=== PATIENT | male | born 1940 | race Asian ===

== ENCOUNTER 2016-05-17 18:04 | Emergency (ER) | payer MEDICARE, OTHER ==
[~2016-05-17] VITALS: Ht 170.2 cm; Wt 63.5 kg
[2016-05-17] MEDS ORDERED: CARVEDILOL3.125 MG ORAL (18:06)
[2016-05-17] MEDS ORDERED: AMLODIPINE BES2.5 MG ORAL (18:06)
[2016-05-17] MEDS ORDERED: ELIQUIS2.5 MG PO (18:06)
[2016-05-17] MEDS ORDERED: DEXILANT30 MG ORAL (18:06)
[2016-05-17 18:12] VITALS: BP 136/71
--- NOTE | 2016-05-17 18:23 | Emergency Room Report ---
History of Present Illness General Chief Complaint: Altered Level of Consciousness Source: Patient, EMS Present Illness HPI Patient is a 76-year-old male who presented after having increased altered level consciousness. The patient had prior history of end-stage renal disease. Patient had been on dialysis earlier in the day. The patient was noted to have missed one dialysis this week. Patient had prior history of hypertension he is not known to be taking any anticoagulation. Patient was brought in by EMS.Blood sugar was noted to be 113 Allergies: Coded Allergies: No Known Allergies (Unverified , 05/17/16) Patient History Past Medical History: see triage record Reviewed Nursing Documentation: PMH: Agreed, PSxH: Agreed Nursing Documentation-PMH Hx Hypertension: Yes Hx Diabetes: Yes Hx Dialysis: Yes Review of Systems All Other Systems: negative except mentioned in HPI Physical Exam Vital Signs Date Time Temp Pulse Resp B/P Pulse Ox O2 Delivery O2 Flow Rate FiO2 05/17/16 18:00 97.9 108 18 136/71 100 Nasal Cannula 4.0 General Appearance: alert, GCS 15, non-toxic, mild distress, thin Eyes: bilateral eye conjunctivae pale Neck: full range of motion Respiratory: lungs clear, normal breath sounds, no rhonchi, no respiratory distress Cardiovascular #1: normal peripheral pulses, regular rate, rhythm, irregularly irregular Gastrointestinal: non tender, soft, other - incision right lower abdomen Genitourinary: normal inspection Musculoskeletal: normal inspection, digits/nails normal Neurologic: alert, oriented x3, responsive, shipping processor III-XII nml as tested Psychiatric: normal inspection Skin: other Medical Decision Making Diagnostic Impression: Primary Impression: Altered level of consciousness Additional Impression: ESRD (end stage renal disease) ER Course Patient presented for altered mental status.Differential diagnosis included but was not limited to ischemic stroke, subarachnoid hemorrhage, hypoglycemia, spinal cord injury, neurodegenerative disorder, urinary tract infection, hypoxemia.Because of complexity of patient's case laboratory testing and imaging studies were ordered. EKG interpreted by me showed atrial fibrillation with a rate of 100 with occasional PVCs. Patient was noted to have some lateral ST depression changes. CT head read by radiology showed atrophic changes without evident stroke or intracranial hemorrhage. The patient was noted to have improvement in his mental status. Patient said he felt better want to go home. The patient's was in agreement with having the patient go home and follow up with his primary care physician. The patient and declined inpatient admission. They were advised to return at anytime. Labs Test 05/17/16 18:00 White Blood Count 5.0 K/UL (4.8-10.8) Red Blood Count 2.41 M/UL (4.70-6.10) Hemoglobin 8.9 G/DL (14.2-18.0) Hematocrit 26.1 % (42.0-52.0) Mean Corpuscular Volume 108 FL (80-99) Mean Corpuscular Hemoglobin 36.8 PG (27.0-31.0) Mean Corpuscular Hemoglobin Concent 34.0 G/DL (32.0-36.0) Red Cell Distribution Width 13.0 % (11.6-14.8) Platelet Count 96 K/UL (150-450) Mean Platelet Volume 8.0 FL (6.5-10.1) Neutrophils (%) (Auto) % (45.0-75.0) Lymphocytes (%) (Auto) % (20.0-45.0) Monocytes (%) (Auto) % (1.0-10.0) Eosinophils (%) (Auto) % (0.0-3.0) Basophils (%) (Auto) % (0.0-2.0) Prothrombin Time 10.9 SEC (9.30-11.50) Prothromb Time International Ratio 1.1 (0.9-1.1) Activated Partial Thromboplast Time 29 SEC (23-33) Sodium Level 132 mEQ/L (135-145) Potassium Level 3.5 mEQ/L (3.4-4.9) Chloride Level 86 mEQ/L (98-107) Carbon Dioxide Level 29 mEQ/L (20-30) Anion Gap 17 (5-15) Blood Urea Nitrogen 33 mg/dL (7-23) Creatinine 3.5 mg/dL (0.7-1.2) Estimat Glomerular Filtration Rate mL/min (>60) Glucose Level 146 mg/dL (74-106) Lactic Acid Level 1.50 mmol/L (0.66-2.22) Calcium Level 7.7 mg/dL (8.6-10.2) Phosphorus Level 1.8 mg/dL (2.5-4.8) Magnesium Level 2.0 mg/dL (1.7-2.5) Total Bilirubin 0.5 mg/dL (0.0-1.2) Aspartate Amino Transf (AST/SGOT) 30 U/L (5-40) Alanine Aminotransferase (ALT/SGPT) 9 U/L (3-41) Alkaline Phosphatase 99 U/L (40-129) Total Creatine Kinase 88 U/L (38-174) Creatine Kinase MB 2.1 ng/mL (< 6.7) Creatine Kinase MB Relative Index 2.3 Troponin I < 0.30 ng/mL (<=0.30) Total Protein 6.6 g/dL (6.6-8.7) Albumin 3.3 g/dL (3.5-5.2) Globulin 3.3 g/dL Albumin/Globulin Ratio 1.0 (1.0-2.7) Lipase 72 U/L (< 60) EKG Diagnostic Results Rate: normal Rhythm: NSR ST Segments: no acute changes Rhythm Strip Diag. Results EP Interpretation: yes Rhythm: NSR, no PVC's, no ectopy Chest X-Ray Diagnostic Results EP Interpretation: Yes Findings: no consolidation, no effusion, no pneumothorax, no acute cardiopulmonary disease Number of Views: 1 Last Vital Signs Date Time Temp Pulse Resp B/P Pulse Ox O2 Delivery O2 Flow Rate FiO2 05/17/16 18:00 97.9 108 18 136/71 100 Nasal Cannula 4.0 Status: unchanged Disposition: ADMITTED INPATIENT Condition: Neymar Queen May 17, 2016 18:23
[2016-05-17] MEDS ORDERED: STOOL SOFTENER250 MG PO (18:28)
[2016-05-17] MEDS ORDERED: DIOVAN40 MG ORAL (18:28)
[2016-05-17 18:37] LABS: MEAN CORPUSCULAR HEMOGLOBIN 36.8 PG (27.0-31.0); MEAN CORPUSCULAR VOLUME 108 FL (80-99); PLATELET COUNT 96 K/UL (150-450); RED BLOOD COUNT 2.41 M/UL (4.70-6.10)
[2016-05-17 18:42] LABS: INR 1.1 (0.9-1.1); PROTHROMBIN TIME 10.9 SEC (9.30-11.50)
[2016-05-17 19:01] LABS: TROPONIN I < 0.30 ng/mL (<=0.30)
[2016-05-17 19:03] LABS: ALANINE AMINOTRANSFERASE 9 U/L (3-41); ANION GAP 17 (5-15); ASPARTATE AMINO TRANSFERASE 30 U/L (5-40); CALCIUM 7.7 mg/dL (8.6-10.2); CARBON DIOXIDE 29 mEQ/L (20-30); CHLORIDE 86 mEQ/L (98-107); CREATININE 3.5 mg/dL (0.7-1.2); HEMOLYSIS 31; LIPASE 72 U/L (< 60); PHOSPHORUS 1.8 mg/dL (2.5-4.8); POTASSIUM 3.5 mEQ/L (3.4-4.9); SODIUM 132 mEQ/L (135-145); TOTAL PROTEIN 6.6 g/dL (6.6-8.7)
[2016-05-17 19:14] LABS: CKMB 2.1 ng/mL (< 6.7)
[2016-05-17 19:52] VITALS: BP 142/59
[2016-05-17 19:53] LABS: ANISOCYTOSIS 1+; BAND NEUTROPHILS % (MANUAL) 0 % (0-8); BASOPHILS % (MANUAL) 0 % (0-2); EOSINOPHILS % (MANUAL) 8 % (0-3); HYPOCHROMASIA 1+; LYMPHOCYTES % (MANUAL) 27 % (20-45); NEUTROPHILS % (MANUAL) 62 % (45-75); PLATELET ESTIMATE DECREASED; PLATELET MORPHOLOGY NORMAL; TOTAL CELLS COUNTED 100
[2016-05-17 22:03] VITALS: BP 138/81
--- NOTE | 2016-05-18 09:50 | Diagnostic Imaging Report ---
Indication: Altered mental status Technique: Continuous helical CT scanning of the head was performed utilizing automated exposure control without intravenous contrast material. Axial and coronal reconstructions were obtained. Comparison: None CT dose: Total DLP 1393 mGycm; CTDI vol 70.4 mGy Findings: There is no acute intracranial hemorrhage, mass effect or cortical edema. The ventricles, cisterns and sulci are prominent consistent with atrophy. Periventricular and subcortical hypoattenuation are seen, a nonspecific finding. Small hypodensities are suggested of the bilateral basal ganglia. The posterior fossa and fourth ventricle are unremarkable. Sellar and suprasellar regions are grossly unremarkable. Visualized mastoid air cells and paranasal sinuses are unremarkable. No focal lesions of the bony calvarium or soft tissues of the scalp are seen. Impression: No evidence of acute intracranial hemorrhage, mass effect or cortical edema. MRI may be obtained for more sensitive evaluation as clinically indicated. Atrophy and nonspecific periventricular and subcortical hypoattenuation suggestive of chronic ischemic microvascular changes. Small apparent hypodensities of the bilateral basal ganglia could represent old lacunar infarcts. Clinical correlation recommended. The CT scanner at [facility] is accredited by the [employer] and the scans are performed using protocols designed to limit radiation exposure to as low as reasonably achievable to attain images of sufficient resolution adequate for diagnostic evaluation.
--- NOTE | 2016-05-19 09:34 | Diagnostic Imaging Report ---
Indication: Shortness of breath Technique: XRAY CHEST 1 V Comparison: None Findings: Cardiac silhouette is prominent. There is central pulmonary vascular redistribution. Sternotomy wires are seen. Atherosclerotic changes are noted. There is no obvious pleural effusion. Degenerative changes of the spine are seen. Impression: Cardiomegaly with central pulmonary vascular congestion. Clinical correlation/followup recommended.
== END 2016-05-17 22:03 | disposition home or self-care (01) ==
LOC: EDBD 18:04 → EMR 18:21 → EDBEDREQ 20:53 → CANBEDREQ 21:29 → EMR 22:03
DX: R40.4 Transient alteration of awareness (principal); E11.22 Type 2 diabetes mellitus with diabetic chronic kidney disease; I12.0 Hypertensive chronic kidney disease with stage 5 chronic kidney disease or end stage renal disease; N18.6 End stage renal disease; Z99.2 Dependence on renal dialysis
CPT/HCPCS: 36415; 70450; 71010; 80053; 82550; 82553; 83605; 83690; 83735; 84100; 84484; 85007; 85025; 85610; 85730; 87040; 87081; 93005